=== PATIENT | female | born 1950 | race Caucasian/White ===

== ENCOUNTER 2021-05-27 21:25 | Emergency (ER) | payer MEDICARE, OTHER, SELFPAY ==
[2021-05-27 21:29] VITALS: BP 187/78; PULSE 91; RESP 20; TEMP 37.4; O2SAT 98; BMI 18.6
[2021-05-27 21:51] LABS: Eosinophils Absolute Auto 100 /uL (0-450); Monocytes Absolute Auto 700 /uL (0-900); Red Cell Distribution Width 16.9 % (11.6-14.8)
[2021-05-27] MEDS: ONDANSETRON 4 MG/2 ML INJ IV (21:52)
[2021-05-27] MEDS: HYDROMORPHONE 0.5 MG INJ IV (21:53)
[2021-05-27 21:55] LABS: Add Manual Diff / Slide Review NO; Basophils Absolute Auto 0 /uL (0-100); Basophils Percent Auto 0.7 % (0-2); Eosinophils Percent Auto 1.5 % (2-4); Hematocrit 22.2 % (36-46); Hemoglobin 7.3 g/dL (12.0-16.0); Lymphocytes Absolute Auto 700 /uL (1100-4500); Lymphocytes Percent Auto 11.1 % (25-40); Mean Corpuscular Hemoglobin 29.9 PG (26-34); Mean Corpuscular Volume 90.4 fL (80-100); Neutrophils Absolute Auto 4600 /uL (1500-7000); Neutrophils Percent Auto 74.7 % (50-75); Platelet Count 376 X10^3/uL (150-400); Red Blood Cell Count 2.46 X10^6/uL (4.0-5.2); White Blood Cell Count 6.1 X10^3/uL (4.5-11.0)
[2021-05-27 22:05] VITALS: PULSE 80; O2SAT 97
[2021-05-27 22:07] LABS: Lactate (Lactic Acid) 1.1 mmol/L (0.7-2.1)
[2021-05-27 22:08] LABS: Alanine Aminotransferase 14 IU/L (<35); Albumin 3.7 g/dL (3.5-5.0); Albumin Globulin Ratio 1.5 (1.0-2.8); Alkaline Phosphatase 107 U/L (38-126); Aspartate Aminotransferase 62 IU/L (14-36); BUN Creatinine Ratio 32.4 (6-22); Bilirubin Total 0.4 mg/dL (0.2-1.3); Blood Urea Nitrogen 22 mg/dL (7-17); Calcium 9.3 mg/dL (8.4-10.2); Carbon Dioxide 30 mmol/L (22-32); Chloride 105 mmol/L (98-107); Estimated Glomerular Filt Rate > 60.0 mL/min (>60); Globulin 2.5 g/dL (1.7-4.1); Glucose 104 mg/dL (80-110); HEMOLYSIS < 15 (0-50); Potassium 3.8 mmol/L (3.4-5.1); Sodium 139 mmol/L (137-145); Total Protein 6.2 g/dL (6.3-8.2)
[2021-05-27 22:30] VITALS: BP 149/71; PULSE 79; O2SAT 98
[2021-05-27 23:00] VITALS: BP 151/75; PULSE 80; O2SAT 97
[2021-05-27 23:30] VITALS: BP 156/75; PULSE 80; O2SAT 97
--- NOTE | 2021-05-27 23:50 | ED.GENADULT ---
HPI - General Adult General Chief complaint: Urogenital-Female Stated complaint: Back pain Time Seen by Provider: 05/27/21 21:27 Mode of arrival: Family Vehicle History of Present Illness HPI narrative: 70-year-old woman with history of metastatic breast cancer visiting [place] with her medical care through [facility] [place] presents with acute onset low back pain and abdominal pain at approximately 8:00 p.m. tonight. She had some methocarbamol that she took that was ineffective. She describes the pain as being so severe she is having difficulty walking. She notes that she has had multiple CT scans of her abdomen and has never previously been told that she had an aortic aneurysm. Possibility of rupturing aneurysm is entertained, she is hypertensive and significantly anemic without signs of acute blood loss. She reports that she was told she was anemic when she was diagnosed with her breast cancer 6 months ago but was under the impression that it had improved. She reports no falls or events associated with onset of her pain. She has not recently had fevers, cough, chills, vomiting, diarrhea. Related Data Previous Rx's Medication Instructions Recorded levofloxacin 750 mg tablet 750 mg PO DAILY #10 tab 05/28/21 Allergies Allergy/AdvReac Type Severity Reaction Status Date / Time No Known Drug Allergies Allergy Verified 05/27/21 21:35 Review of Systems Review of Systems Narrative: Remainder of complete review of systems is otherwise unremarkable except for that included in the HPI. Patient History Medical History (Updated 05/28/21 @ 02:01 by Dianna Andrew MD) Metastatic breast cancer Social History Smoking Status: Never smoker Smoking Status: Never smoker Substance Use Type: does not use Exam Initial Vital Signs Initial Vital Signs: Vital Signs Temperature 99.3 F 05/27/21 21:29 Pulse Rate 91 H 05/27/21 21:29 Respiratory Rate 20 05/27/21 21:29 Blood Pressure 187/78 H 05/27/21 21:29 Pulse Oximetry 98 05/27/21 21:29 General: Frail appearing, in obvious pain. Able to participate with history. HEENT: Moist mucous membranes, normal sclera with reactive pupils, Neck: No JVD, supple Respiratory: Lungs are clear to auscultation, no wheezing no rales no rhonchi. Full and symmetrical air movement Cardiac: Regular rate and rhythm no murmurs no bruits Abdomen: Soft, nontender, good bowel tones, no flank pain. She is quite thin and her aorta is palpable in the upper epigastrium but does not feel particularly enlarged. Skin: Warm and dry, no rashes Neurologic: Grossly neurologically intact with no obvious asymmetries or abnormalities Spine: No point tenderness along her thoracic or lumbar spine. No skin changes. No paraspinous muscle spasm. Extremities: No trauma, well perfused Psych: Cooperative, appropriate insight and affect Course Orders Ordered: ED Orders 05/27/21 21:40 Complete Blood Count AUTO DIFF Stat Comprehensive Metabolic Panel Stat Lactate (Lactic Acid) Stat 05/27/21 21:55 Blood Culture Stat 05/28/21 00:13 CT abdomen pelvis w con Stat 05/28/21 01:00 Urinalysis and Microscopic Stat Urine Culture Stat Discontinued Medications Hydromorphone HCl (Hydromorphone 0.5 Mg Inj) 0.5 mg IV Q15MIN PRN PRN Reason: Pain, Last Admin: 05/28/21 00:16 Dose: 0.5 mg Documented by: Admin: 05/27/21 21:53 Dose: 0.5 mg Documented by: RAFI Ceftriaxone Sodium 2,000 mg/ (Sodium Chloride) 100 mls @ 200 mls/hr IV NOW ONE Stop: 05/28/21 01:51 Last Infusion: 05/28/21 02:40 Dose: 0 mls/hr Documented by: Admin: 05/28/21 02:09 Dose: 200 mls/hr Documented by: RAFI Ketorolac Tromethamine (Ketorolac 30 Mg/Ml Vial) 30 mg IV NOW ONE Stop: 05/28/21 01:51 Last Admin: 05/28/21 02:10 Dose: 30 mg Documented by: RAFI Ondansetron HCl (Ondansetron 4 Mg/2 Ml Inj) 4 mg IV NOW ONE Stop: 05/27/21 21:28 Last Admin: 05/27/21 21:52 Dose: 4 mg Documented by: RAFI Oxycodone/Acetaminophen (Oxycodone/Apap 5/325 Prepack) 1 bottle MISC SEEINSTR ONE Stop: 05/28/21 01:53 Last Admin: 05/28/21 02:10 Dose: 1 bottle Documented by: HGBETTYN Vital Signs Vital signs: Vital Signs - 8 hr 05/27/21 21:29 05/27/21 22:05 05/27/21 22:30 Temperature 99.3 F Pulse Rate 91 H 80 79 Respiratory Rate 20 Blood Pressure 187/78 H 149/71 H Pulse Oximetry 98 97 98 05/27/21 23:00 05/27/21 23:30 05/28/21 00:00 Temperature Pulse Rate 80 80 91 H Respiratory Rate Blood Pressure 151/75 H 156/75 H 163/79 H Pulse Oximetry 97 97 94 05/28/21 00:37 05/28/21 00:51 05/28/21 00:57 Temperature Pulse Rate 83 80 Respiratory Rate Blood Pressure 152/68 H Pulse Oximetry 95 96 05/28/21 01:00 05/28/21 01:31 05/28/21 02:00 Temperature Pulse Rate Respiratory Rate Blood Pressure 162/82 H 133/59 L 135/67 Pulse Oximetry 05/28/21 02:30 05/28/21 02:46 Temperature Pulse Rate 78 Respiratory Rate Blood Pressure 135/65 Pulse Oximetry 98 Medical Decision Making Lab Data Result diagrams: 05/27/21 21:40 05/27/21 21:40 Labs: Lab Results 05/27/21 05/27/21 05/27/21 Range/Units 21:40 21:40 21:40 WBC 6.1 (4.5-11.0) X10^3/uL RBC 2.46 L (4.0-5.2) X10^6/uL Hgb 7.3 L (12.0-16.0) g/dL Hct 22.2 L (36-46) % MCV 90.4 (80-100) fL MCH 29.9 (26-34) PG MCHC 33.0 (30-36) % RDW 16.9 H (11.6-14.8) % Plt Count 376 (150-400) X10^3/uL Neut % (Auto) 74.7 (50-75) % Lymph % (Auto) 11.1 L (25-40) % [place] % (Auto) 12.0 (3-14) % Eos % (Auto) 1.5 L (2-4) % Baso % (Auto) 0.7 (0-2) % Neut # (Auto) 4600 (0463-2406) /uL Lymph # (Auto) 700 L (3420-6508) /uL [place] # (Auto) 700 (0-900) /uL Eos # (Auto) 100 (0-450) /uL Baso # (Auto) 0 (0-100) /uL Sodium 139 (137-145) mmol/L Potassium 3.8 (3.4-5.1) mmol/L Chloride 105 (98-107) mmol/L Carbon Dioxide 30 (22-32) mmol/L BUN 22 H (7-17) mg/dL Creatinine 0.68 (0.52-1.04) mg/dL Estimated GFR > 60.0 (>60) mL/min BUN/Creatinine Ratio 32.4 H (6-22) Glucose 104 (80-110) mg/dL Lactate 1.1 (0.7-2.1) mmol/L Calcium 9.3 (8.4-10.2) mg/dL Total Bilirubin 0.4 (0.2-1.3) mg/dL AST 62 H (14-36) IU/L ALT 14 (<35) IU/L Alkaline Phosphatase 107 (38-126) U/L Total Protein 6.2 L (6.3-8.2) g/dL Albumin 3.7 (3.5-5.0) g/dL Globulin 2.5 (1.7-4.1) g/dL Albumin/Globulin Ratio 1.5 (1.0-2.8) Urine Color Urine Appearance Urine pH (4.5-8.0) Ur Specific [place] (1.000-1.035) Urine Protein (Negative) Urine Glucose (UA) (Negative) g/dL Urine Ketones (NEGATIVE) Urine Occult Blood (Negative) Urine Nitrate (Negative) Urine Bilirubin (NEGATIVE) Urine Urobilinogen (0.2) E.U./dL Ur Leukocyte Esterase (NEGATIVE) Urine RBC (0-5/HPF) Urine WBC (0-5/HPF) Ur Squamous Epith Cells (0-5/HPF) Urine Bacteria (None) Ur Culture Indicated? 05/28/21 Range/Units 01:00 WBC (4.5-11.0) X10^3/uL RBC (4.0-5.2) X10^6/uL Hgb (12.0-16.0) g/dL Hct (36-46) % MCV (80-100) fL MCH (26-34) PG MCHC (30-36) % RDW (11.6-14.8) % Plt Count (150-400) X10^3/uL Neut % (Auto) (50-75) % Lymph % (Auto) (25-40) % [place] % (Auto) (3-14) % Eos % (Auto) (2-4) % Baso % (Auto) (0-2) % Neut # (Auto) (3526-7210) /uL Lymph # (Auto) (4155-5201) /uL [place] # (Auto) (0-900) /uL Eos # (Auto) (0-450) /uL Baso # (Auto) (0-100) /uL Sodium (137-145) mmol/L Potassium (3.4-5.1) mmol/L Chloride (98-107) mmol/L Carbon Dioxide (22-32) mmol/L BUN (7-17) mg/dL Creatinine (0.52-1.04) mg/dL Estimated GFR (>60) mL/min BUN/Creatinine Ratio (6-22) Glucose (80-110) mg/dL Lactate (0.7-2.1) mmol/L Calcium (8.4-10.2) mg/dL Total Bilirubin (0.2-1.3) mg/dL AST (14-36) IU/L ALT (<35) IU/L Alkaline Phosphatase (38-126) U/L Total Protein (6.3-8.2) g/dL Albumin (3.5-5.0) g/dL Globulin (1.7-4.1) g/dL Albumin/Globulin Ratio (1.0-2.8) Urine Color Yellow Urine Appearance Cloudy Urine pH 6.5 (4.5-8.0) Ur Specific [place] 1.015 (1.000-1.035) Urine Protein Negative (Negative) Urine Glucose (UA) Negative (Negative) g/dL Urine Ketones Negative (NEGATIVE) Urine Occult Blood 2+ H (Negative) Urine Nitrate Positive H (Negative) Urine Bilirubin Negative (NEGATIVE) Urine Urobilinogen 0.2 (0.2) E.U./dL Ur Leukocyte Esterase 1+ H (NEGATIVE) Urine RBC 5-10/hpf H (0-5/HPF) Urine WBC 30-100/hpf H (0-5/HPF) Ur Squamous Epith Cells 1-5 /hpf (0-5/HPF) Urine Bacteria Many (>30) H (None) Ur Culture Indicated? Specimen cultured Imaging Data CT scan - abdomen/pelvis: Radiologist's Impression: FINDINGS:? Image quality:? Excellent.? ? Lung bases:? Unremarkable. Heart:? No significant findings. ? ABDOMEN: Liver:? Multiple hepatic cysts. Gallbladder:? Gallbladder wall is mildly thickened.? There is trace pericholecystic fluid. Biliary ducts:? Unremarkable.? ? Pancreas:? Unremarkable.? ? Spleen:? Unremarkable.? ? Adrenal Glands:? Unremarkable.? ? Kidneys and Ureters:? 1 millimeter nonobstructing stone noted in the superior pole of left kidney.? Two 4 millimeter nonobstructing stones noted in the lower pole left kidney. ?Multiple right renal stones are noted which range in size from 1-4 millimeters.? There are small air locules associated with several of the renal stones suspicious for infection with gas-forming organism. ? Stomach and Bowel:? Moderate-sized hiatal hernia.? Scattered colonic diverticuli without evidence of diverticulitis. ? Peritoneum:? No abnormal intraperitoneal fluid.? No free air.? ? Ventral Wall: ? No hernias.? Abdominal Nodes:? No retroperitoneal or mesenteric adenopathy by size criteria.? Vessels:? Aorta and inferior vena cava are normal in size.? ? PELVIS: Pelvic Organs:? Calcified fibroids in the uterus. Bladder:? Unremarkable.? ? Pelvic Nodes: No enlarged lymph nodes.? Miscellaneous: No hernias are seen. ? ? ? Bones:? Spine degenerative disc disease and facet arthropathy.? Convex left lumbar spine scoliosis.? Status post right femur fracture ORIF.? Scattered sclerotic lesions noted in the visualized ribs, the spine, the bony pelvis and the proximal left femur. ? ? IMPRESSION:? ? 1. Gallbladder wall thickening and trace pericholecystic fluid suspicious for cholecystitis.? Recommend abdominal ultrasound for additional evaluation. ? 2. Multiple bilateral nonobstructing renal stones.? There may be small air locules associated with several of the right-sided renal stones which would be concerning for infected renal stones.? Recommend correlation with urinalysis data and urology consultation. ? 3. Moderate-sized hiatal hernia. ? 4. No free intraperitoneal fluid or air. ? 5. No dilated loops of bowel. ? 6. Osseous metastatic disease. ? 7. Leiomyomatous uterus.? ? ? Dictated by: Rufina Pham MD, PhD on 05/28/2021 at 1:22 ? ? [facility] Narrative Medical decision making narrative: 70-year-old woman with reported metastatic breast cancer no records are available at this time. She has acute onset of back pain low abdominal pain severe enough that she is having difficulty walking. There are no obvious sources appreciated on palpation or clinical exam. With her metastatic breast cancer possibility of pathologic compression fracture, kidney stone with the back and abdominal pain and significant anemia with hemoglobin at 7.3 and hematocrit 22.2 possibility of rupturing aneurysm is also entertained. Aside from the anemia, labs are reassuring. CT scan of the abdomen and pelvis with contrast is ordered. Despite moderate doses of Dilaudid she is still having pain significant enough that she is having difficulty sitting still in bed and getting up to the bathroom. 140am urine is markedly positive with bacteria red blood cells white blood cells consistent with a urinary tract infection. CT scan suggests multiple bilateral nonobstructing renal stones with of concern for small air locules associated with several of the right-sided renal stones which could be concerning for infected stones. Also appreciated is gallbladder wall thickening and trace pericholecystic fluid suspicious for cholecystitis. Multiple areas of osseous metastatic disease with no obvious new spinal compression fractures or pathologic fractures. She does not have any clinical signs or symptoms of right upper quadrant pain to suggest cholecystitis. Renal pain could absolutely be causing her symptoms however she does not report dysuria or frequency. She is not showing signs of sepsis with a normal lactate, normal white blood cell count, no hypotension and no tachycardia. 155am findings are reviewed with patient. Again she is re-examined and has no right upper quadrant tenderness. She has low back and mild bilateral flank pain only. She believes that at some point in the past 1 of her physicians had talked about renal stones with small areas of gas inter renally. At this time they were wondering if it may have been from a Oropeza catheter that was in place during her rehabilitation stay. She is feeling significantly better with half a mg of Dilaudid. She is showing no signs of toxicity or acute sepsis. Will treated with 2 g of IV ceftriaxone for urinary tract infection with possibility of pyelonephritis in concern for air locules associated with the right-sided renal stones. She is given a dose of Toradol and will be discharged home on oral Levaquin 750 mg for 10 days, and prepack of Percocet for severe pain. She does have a friend with her who can help her get all the way back home. She has a follow-up with her oncologist in approximately 9 days. Will be given copies of medical record and labs as well as imaging studies to share with her oncologist at that follow-up appointment. Discharge Plan Departure Patient Disposition: Home Clinical Impression: Metastatic breast cancer, Acute pyelonephritis, Back pain Urinary tract infection Qualifiers: Urinary tract infection type: acute cystitis Hematuria presence: with hematuria Qualified Code(s): N30.01 - Acute cystitis with hematuria Instructions: Kidney Infection, DI for Kidney Infection, DI for Urinary Tract Infection (UTI) Activity Restrictions/Additional Instructions: Thank you for coming in today You do have a urinary tract infection and I am concerned that you may be developing a kidney infection to explain the acute back pain. You were given small dose of Dilaudid, and narcotic.in the emergency department as well as Toradol, which is similar to ibuprofen to help with pain. Your given 2 g of ceftriaxone 3 your IV while in the emergency department and do need to complete an additional 10 days of oral Levaquin, and antibiotic. If you develop a fever, are unable to pee, increasing back pain, confusion or new findings you need to return for further evaluation. In the emergency department there was no evidence of overwhelming infection or sepsis. We did do a CT scan of your abdomen that did not show any problems with your aorta, liver, bowels or pancreas. You do have some metastatic cancer areas noted in your bones and it sounds like you had been aware of these previously. I have given you copies of all of your blood work, ER notes and CT studies for you to share with your oncologist with your follow-up appointment in about a week and half I have also given you a small prescription of Percocet, on oral narcotic, to use for pain control if required. Narcotics will cause constipation so please make sure you are drinking plenty of water and taking a stool softener if you are using the narcotic medication. Prescriptions: New levofloxacin 750 mg tablet 750 mg PO DAILY Qty: 10 0RF
[2021-05-28] VITALS (9 sets, daily range): BP systolic 133–163; BP diastolic 59–82; PULSE 78–91; O2SAT 94–98
--- NOTE | 2021-05-28 00:13 | DI.CT.S_ITS ---
PROCEDURE: CT ABDOMEN PELVIS W CON INDICATIONS: severe abdomenal pain, low back pain, acute onset, known met breast CA TECHNIQUE: After the administration of intravenous contrast, axial sections acquired from the lung bases to the pubic symphysis. Coronal and sagittal reformats were performed. For radiation dose reduction, the following was used: automated exposure control, adjustment of mA and/or kV according to patient size. COMPARISON: None. FINDINGS: Image quality: Excellent. Lung bases: Unremarkable. Heart: No significant findings. ABDOMEN: Liver: Multiple hepatic cysts. Gallbladder: Gallbladder wall is mildly thickened. There is trace pericholecystic fluid. Biliary ducts: Unremarkable. Pancreas: Unremarkable. Spleen: Unremarkable. Adrenal Glands: Unremarkable. Kidneys and Ureters: 1 millimeter nonobstructing stone noted in the superior pole of left kidney. Two 4 millimeter nonobstructing stones noted in the lower pole left kidney. Multiple right renal stones are noted which range in size from 1-4 millimeters. There are small air locules associated with several of the renal stones suspicious for infection with gas-forming organism. Stomach and Bowel: Moderate-sized hiatal hernia. Scattered colonic diverticuli without evidence of diverticulitis. Peritoneum: No abnormal intraperitoneal fluid. No free air. Ventral Wall: No hernias. Abdominal Nodes: No retroperitoneal or mesenteric adenopathy by size criteria. Vessels: Aorta and inferior vena cava are normal in size. PELVIS: Pelvic Organs: Calcified fibroids in the uterus. Bladder: Unremarkable. Pelvic Nodes: No enlarged lymph nodes. Miscellaneous: No hernias are seen. Bones: Spine degenerative disc disease and facet arthropathy. Convex left lumbar spine scoliosis. Status post right femur fracture ORIF. Scattered sclerotic lesions noted in the visualized ribs, the spine, the bony pelvis and the proximal left femur. IMPRESSION: 1. Gallbladder wall thickening and trace pericholecystic fluid suspicious for cholecystitis. Recommend abdominal ultrasound for additional evaluation. 2. Multiple bilateral nonobstructing renal stones. There may be small air locules associated with several of the right-sided renal stones which would be concerning for infected renal stones. Recommend correlation with urinalysis data and urology consultation. 3. Moderate-sized hiatal hernia. 4. No free intraperitoneal fluid or air. 5. No dilated loops of bowel. 6. Osseous metastatic disease. 7. Leiomyomatous uterus. Dictated by: Rufina Pham MD, PhD on 05/28/2021 at 1:22 Approved by: Rufina Pham MD, PhD on 05/28/2021 at 1:30
[2021-05-28] MEDS: HYDROMORPHONE 0.5 MG INJ IV (00:16)
[2021-05-28 01:11] LABS: Appearance Urine UA CLOUDY; Bilirubin Urine UA NEGATIVE (NEGATIVE); Color Urine UA YELLOW; Glucose Urine UA NEGATIVE (Negative); Ketones Urine UA NEGATIVE (NEGATIVE); Leukocyte Esterase Urine UA 1+ (NEGATIVE); Nitrite Urine UA POSITIVE (Negative); Occult Blood Urine UA 2+ (Negative); Protein Urine UA NEGATIVE (Negative); Specific Gravity Urine UA 1.015 (1.000-1.035); Urobilinogen Urine UA 0.2 E.U./dL (0.2)
[2021-05-28 01:21] LABS: pH Urine UA 6.5 (4.5-8.0)
[2021-05-28 01:23] LABS: Bacteria Urine Many (>30); Culture Indicated Urine Specimen Cultured; RBC Urine 5-10/HPF (0-5/HPF); Squamous Epithelial Cell Urine 1-5 /HPF (0-5/HPF); WBC Urine 30-100/HPF (0-5/HPF)
[2021-05-28] MEDS: cefTRIAXone 2,000 MG in SODIUM CHLORIDE 0.9% 100 ML 200 ML IV (02:09)
[2021-05-28] MEDS: OXYCODONE/APAP 5/325 PREPACK 1 BOTTLE MISC (02:10)
[2021-05-28] MEDS: KETOROLAC 30 MG/ML VIAL IV (02:10)
== END 2021-05-28 02:50 | disposition home or self-care (01) ==
PROVIDERS: Emergency Provider Emergency Medicine
DX: C50.919 Malignant neoplasm of unspecified site of unspecified female breast (principal); C79.9 Secondary malignant neoplasm of unspecified site; N11.1 Chronic obstructive pyelonephritis; M54.50 Low back pain, unspecified
CPT/HCPCS: 36415; 74177; 80053; 81001; 83605; 85025; 87040; 87077; 87086; 87186; 96365; 96375; 99284; J0696; J1170; J1885; J2405; Q9967